=== PATIENT | female | born 1995 | race Caucasian/White ===

== ENCOUNTER 2022-06-15 22:11 | Emergency (ER) | payer BC, MEDICAID ==
[~2022-06-15] VITALS: Ht 172.7 cm; Wt 89.8 kg
[2022-06-15 22:15] VITALS: BP_SYST 119
--- NOTE | 2022-06-15 22:15 | NUR ---
Triaged and placed patient to ER bed 4 for evaluation. Report given to Abdullahi BELTRAN for continuity of care. Bed placed in lowest position with side rails up. Instructed to notify ED staff for any changes in condition or worsening of symptoms while waiting to be seen by a provider. Patient verbalized understanding.
--- NOTE | 2022-06-15 22:31 | NUR ---
Swabbed patient for Covid Rama and Influenza A&B antigen as ordered by Dr. South. Patient tolerated the procedure well. Specimen dropped off at the lab.
--- NOTE | 2022-06-15 22:34 | NUR ---
PT IS SORE TROAT, NAUSEATED, FEVER 101. AT HOME 21.00 TOOK VICODIN PER MOTHER RECOMMEDATION.
[2022-06-15] MEDS ORDERED: KETOROLAC TROMETHAMINE 15 MG VIAL IVP ONE (23:00)
[2022-06-15] MEDS ORDERED: ONDANSETRON HCL 4 MG/2 ML VIAL IVP ONE (23:00)
[2022-06-15] MEDS ORDERED: NACL 0.9% 1,000 ML IV ONE ×2 (23:00→23:45)
[2022-06-15 23:24] LABS: BASOPHILS % (AUTO) 0.3 % (0.0-2.0); HEMATOCRIT 38.2 % (36-48); HEMOGLOBIN 12.8 g/dL (12.0-16.0); LYMPHOCYTES # (AUTO) 0.8 K/uL (1.0-5.5); LYMPHOCYTES % (AUTO) 4.9 % (20.5-51.5); MEAN CORPUSCULAR HEMOGLOBIN 28 pg (27-31); MEAN CORPUSCULAR HGB CONC 33 % (32-36); MEAN CORPUSCULAR VOLUME 84 fL (79.0-98.0); MONOCYTES # (AUTO) 0.5 K/uL (0.0-1.0); MONOCYTES % (AUTO) 3.3 % (1.7-9.3); NEUTROPHILS % (AUTO) 91.5 % (40.0-70.0); PLATELET COUNT (AUTO) 261 K/uL (130-430); RED BLOOD CELL COUNT(AUTO) 4.54 MIL/uL (4.2-6.2); RED CELL DISTRIBUTION WIDTH 13.3 % (9.0-15.0); WHITE BLOOD COUNT (AUTO) 16.4 K/uL (4.8-10.8)
[2022-06-15 23:38] LABS: CREATININE 0.89 mg/dL (0.55-1.30)
[2022-06-15 23:43] LABS: ALBUMIN 3.7 g/dL (3.4-4.8); TOTAL BILIRUBIN 0.5 mg/dL (0.0-1.0)
[2022-06-15 23:43] LABS: BILIRUBIN,URINE NEGATIVE (NEGATIVE); BLOOD, URINE 3+ (NEGATIVE); COLOR,URINE YELLOW (YELLOW); GLUCOSE,URINE NEGATIVE (NEGATIVE); KETONES,URINE NEGATIVE (NEGATIVE); LEUKOCYTE ESTERASE ,URINE TRACE (NEGATIVE); NITRITE, URINE NEGATIVE (NEGATIVE); PH,URINE 6.5 (5.0-8.0); PROTEIN URINE NEGATIVE (NEGATIVE); UROBILINOGEN,URINE 0.2 (0.2-1.0)
[2022-06-15 23:54] LABS: CLARITY/URINE TURBID (CLEAR)
[2022-06-16 00:05] LABS: BACTERIA,URINE FEW /HPF (None Seen); MUCUS,URINE 1+ /LPF (None Seen)
[2022-06-16] MEDS ORDERED: cefTRIAXone 2 GM VIAL ONE (00:07)
[2022-06-16] MEDS ORDERED: MORPHINE 4 MG INJ. 4 MG/ML VIAL IVP ONE (01:30)
[2022-06-16] MEDS ORDERED: IBUP-1969 PO ×2 (02:41→04:25)
[2022-06-16] MEDS ORDERED: CEPH-548 PO ×2 (02:41→04:25)
--- NOTE | 2022-06-16 03:37 | NUR ---
Patient given written and verbal discharge instructions and verbalizes understanding. ER MD discussed with patient the results and treatment provided. Patient in stable condition. ID arm band removed. IV catheter removed intact and dressing applied, no active bleeding. Rx of cephalixn and ibuprofen given. Patient educated on pain management and to follow up with PMD. Pain Scale 0/10 Opportunity for questions provided and answered. Medication side effect fact sheet provided.
[2022-06-16 04:03] VITALS: BP_SYST 125
== END 2022-06-16 03:37 | disposition home or self-care (01) ==
LOC: SED 22:11
DX: N39.0 Urinary tract infection, site not specified (principal); J06.9 Acute upper respiratory infection, unspecified; N12 Tubulo-interstitial nephritis, not specified as acute or chronic; Z79.899 Other long term (current) drug therapy; Z20.822 Contact with and (suspected) exposure to COVID-19
CPT/HCPCS: 99284; 87426; 80053; 81000; 82550; 83690; 85025; 86403; 87086; 36415; 81025; 83605; 87804 ×2; 87040; 87081; 96365; 96375; J1885; J2405; J0696; J2270

== ENCOUNTER 2022-07-31 13:22 | Emergency (ER) | payer BC, MEDICAID ==
[~2022-07-31] VITALS: Ht 172.7 cm; Wt 86.2 kg
[2022-07-31 13:22] VITALS: BP_SYST 120
[~2022-07-31 13:22] MED LIST: CEPH-548 PO; IBUP-1969 PO
--- NOTE | 2022-07-31 13:25 | NUR ---
Patient triaged and placed in waiting room. VSS and patient appears in no acute distress at this time. Accompanied by SELF, awaiting available bed, and MD notified of need for MSE.
--- NOTE | 2022-07-31 14:12 | NUR ---
BROUGHT BACK TO BED #3 AMBULATORY, REPORT GIVEN TO SHEELA
[2022-07-31 14:30] LABS: BASOPHILS # (AUTO) 0.1 K/uL (0.0-0.2); BASOPHILS % (AUTO) 0.4 % (0.0-2.0); EOSINOPHILS # (AUTO) 0.1 K/uL (0.0-0.4); EOSINOPHILS % (AUTO) 0.3 % (0.0-4.0); HEMATOCRIT 40.1 % (36-48); HEMOGLOBIN 13.4 g/dL (12.0-16.0); LYMPHOCYTES # (AUTO) 2.8 K/uL (1.0-5.5); LYMPHOCYTES % (AUTO) 15.8 % (20.5-51.5); MEAN CORPUSCULAR HEMOGLOBIN 28 pg (27-31); MEAN CORPUSCULAR HGB CONC 33 % (32-36); MEAN CORPUSCULAR VOLUME 85 fL (79.0-98.0); MONOCYTES # (AUTO) 0.5 K/uL (0.0-1.0); MONOCYTES % (AUTO) 2.7 % (1.7-9.3); NEUTROPHILS # (AUTO) 14.3 K/uL (1.8-7.7); NEUTROPHILS % (AUTO) 80.8 % (40.0-70.0); PLATELET COUNT (AUTO) 259 K/uL (130-430); RED BLOOD CELL COUNT(AUTO) 4.73 MIL/uL (4.2-6.2); RED CELL DISTRIBUTION WIDTH 13.3 % (9.0-15.0); WHITE BLOOD COUNT (AUTO) 17.7 K/uL (4.8-10.8)
--- NOTE | 2022-07-31 14:30 | NUR ---
MD DR VILLAR AT BEDSIDE
--- NOTE | 2022-07-31 14:31 | NUR ---
PT BIB SELF AWAKE AND ALERT AOX4, NO SOB OR DISTRESS. PT C/O BILATERAL FLANK PAIN X10 DAYS. PAIN 5/10. PT HAS N/D, BUT DENIES VOMIT. PT STATES PAIN DURING URINATION BUT NO BLOOD. PT HAS HX OF LUPUS, HOOPA DISEASE.
[2022-07-31 14:53] LABS: BILIRUBIN,URINE NEGATIVE (NEGATIVE); BLOOD, URINE NEGATIVE (NEGATIVE); CLARITY/URINE CLEAR (CLEAR); COLOR,URINE YELLOW (YELLOW); GLUCOSE,URINE NEGATIVE (NEGATIVE); KETONES,URINE NEGATIVE (NEGATIVE); LEUKOCYTE ESTERASE ,URINE NEGATIVE (NEGATIVE); NITRITE, URINE NEGATIVE (NEGATIVE); PROTEIN URINE NEGATIVE (NEGATIVE); UROBILINOGEN,URINE 0.2 (0.2-1.0)
[2022-07-31 15:14] LABS: ALBUMIN 3.7 g/dL (3.4-4.8); CALCIUM 8.8 mg/dL (8.4-11.0); CREATININE 0.75 mg/dL (0.55-1.30); TOTAL BILIRUBIN 0.5 mg/dL (0.0-1.0)
[2022-07-31 15:45] LABS: CKMB RELATIVE INDEX 0.5 (0.0-2.9); CREATINE KINASE MB 1.3 ng/mL (0-3.6)
[2022-07-31] MEDS ORDERED: IBUP-1969 PO (16:26)
[2022-07-31 16:40] VITALS: BP_SYST 136
--- NOTE | 2022-07-31 16:42 | NUR ---
Patient given written and verbal discharge instructions and verbalizes understanding. ER MD DR VILLAR discussed with patient the results and treatment provided. Patient in stable condition. ID arm band removed. Rx of MOTRIN given. Patient educated on pain management and to follow up with PMD. Pain Scale 4/10. Opportunity for questions provided and answered. Medication side effect fact sheet provided.
== END 2022-07-31 16:42 | disposition home or self-care (01) ==
LOC: SED 13:22
DX: R10.9 Unspecified abdominal pain (principal); R35.0 Frequency of micturition; R50.9 Fever, unspecified; Z79.899 Other long term (current) drug therapy; Z20.822 Contact with and (suspected) exposure to COVID-19
CPT/HCPCS: 36415; 76770; 80053; 81003; 81025; 82550; 82553; 83690; 85025; 99284

== ENCOUNTER 2022-11-02 13:50 | Emergency (ER) | payer BC, MEDICAID ==
[~2022-11-02] VITALS: Ht 172.7 cm; Wt 88.5 kg
[2022-11-02 14:02] VITALS: BP_SYST 124; PULSE 113; RESP 18; TEMP 97.9; O2SAT 97
[2022-11-02 14:46] LABS: BILIRUBIN,URINE NEGATIVE (NEGATIVE); CLARITY/URINE CLEAR (CLEAR); COLOR,URINE YELLOW (YELLOW); GLUCOSE,URINE NEGATIVE (NEGATIVE); KETONES,URINE NEGATIVE (NEGATIVE); LEUKOCYTE ESTERASE ,URINE NEGATIVE (NEGATIVE); NITRITE, URINE NEGATIVE (NEGATIVE); PROTEIN URINE NEGATIVE (NEGATIVE); UROBILINOGEN,URINE 0.2 (0.2-1.0)
[2022-11-02 14:47] LABS: BACTERIA,URINE FEW /HPF (None Seen); BLOOD, URINE TRACE (NEGATIVE); RBC,URINE 0-3 /HPF (0-3); WBC,URINE 0-3 /HPF (0-3)
[2022-11-02 14:48] LABS: BASOPHILS % (AUTO) 0.4 % (0.0-2.0); EOSINOPHILS # (AUTO) 0.1 K/uL (0.0-0.4); EOSINOPHILS % (AUTO) 1.1 % (0.0-4.0); HEMATOCRIT 39.7 % (36-48); HEMOGLOBIN 12.9 g/dL (12.0-16.0); LYMPHOCYTES # (AUTO) 2.8 K/uL (1.0-5.5); MEAN CORPUSCULAR HEMOGLOBIN 27 pg (27-31); MEAN CORPUSCULAR HGB CONC 33 % (32-36); MEAN CORPUSCULAR VOLUME 84 fL (79.0-98.0); MONOCYTES # (AUTO) 0.4 K/uL (0.0-1.0); MONOCYTES % (AUTO) 5.7 % (1.7-9.3); NEUTROPHILS # (AUTO) 4.2 K/uL (1.8-7.7); NEUTROPHILS % (AUTO) 55.8 % (40.0-70.0); PLATELET COUNT (AUTO) 304 K/uL (130-430); RED BLOOD CELL COUNT(AUTO) 4.74 MIL/uL (4.2-6.2); RED CELL DISTRIBUTION WIDTH 13.7 % (9.0-15.0); WHITE BLOOD COUNT (AUTO) 7.5 K/uL (4.8-10.8)
[2022-11-02 14:48] LABS: MUCUS,URINE 1+ /LPF (None Seen)
[2022-11-02 16:43] VITALS: BP_SYST 135; PULSE 78; RESP 17; TEMP 97.3; O2SAT 97
== END 2022-11-02 16:45 | disposition home or self-care (01) ==
LOC: SED 13:50
DX: O20.9 Hemorrhage in early pregnancy, unspecified (principal); Z3A.01 Less than 8 weeks gestation of pregnancy; Z79.899 Other long term (current) drug therapy
CPT/HCPCS: 36415; 76801; 76817; 81000; 84702; 85025; 86901; 99284

== ENCOUNTER 2023-01-06 13:35 | Emergency (ER) | payer BC, MEDICAID ==
[~2023-01-06] VITALS: Ht 172.7 cm; Wt 88.5 kg
[2023-01-06 14:49] VITALS: BP_SYST 126; PULSE 81; RESP 16; TEMP 97.7; O2SAT 98
== END 2023-01-06 20:36 | disposition left against medical advice (07) ==
LOC: SED 13:35
DX: H57.89 Other specified disorders of eye and adnexa (principal); Z53.21 Procedure and treatment not carried out due to patient leaving prior to being seen by health care provider
CPT/HCPCS: 99281

== ENCOUNTER 2023-02-20 08:35 | Emergency (ER) | payer BC, MEDICAID ==
[~2023-02-20] VITALS: Ht 172.7 cm; Wt 88.5 kg
[2023-02-20 08:40] VITALS: BP_SYST 122; PULSE 120; RESP 20; TEMP 97.6; O2SAT 96
[2023-02-20 09:48] LABS: BASOPHILS % (AUTO) 0.4 % (0.0-2.0); EOSINOPHILS # (AUTO) 0.1 K/uL (0.0-0.4); EOSINOPHILS % (AUTO) 1.4 % (0.0-4.0); HEMATOCRIT 39.8 % (36-48); HEMOGLOBIN 13.2 g/dL (12.0-16.0); LYMPHOCYTES # (AUTO) 0.7 K/uL (1.0-5.5); LYMPHOCYTES % (AUTO) 13.2 % (20.5-51.5); MEAN CORPUSCULAR HEMOGLOBIN 28 pg (27-31); MEAN CORPUSCULAR HGB CONC 33 % (32-36); MEAN CORPUSCULAR VOLUME 85 fL (79.0-98.0); MONOCYTES # (AUTO) 0.3 K/uL (0.0-1.0); MONOCYTES % (AUTO) 6.5 % (1.7-9.3); NEUTROPHILS # (AUTO) 4.2 K/uL (1.8-7.7); NEUTROPHILS % (AUTO) 78.5 % (40.0-70.0); PLATELET COUNT (AUTO) 261 K/uL (130-430); RED BLOOD CELL COUNT(AUTO) 4.68 MIL/uL (4.2-6.2); RED CELL DISTRIBUTION WIDTH 13.7 % (9.0-15.0); WHITE BLOOD COUNT (AUTO) 5.3 K/uL (4.8-10.8)
[2023-02-20 10:02] LABS: ANION GAP 8 (5-15); CALCIUM 9.5 mg/dL (8.4-11.0); CARBON DIOXIDE 27 mmol/L (23-29); CHLORIDE 103 mmol/L (98-107); CREATININE 0.75 mg/dL (0.55-1.30); GFR AFRICAN AMERICAN 118 mL/min (>90); GLUCOSE 101 mg/dL (74-106); POTASSIUM 4.3 mmol/L (3.5-5.1); SODIUM SERUM 138 mmol/L (136-145); UREA NITROGEN, BLOOD 8 mg/dL (8-21)
[2023-02-20 10:07] LABS: GFR NON AFRICAN-AMERICAN 98 mL/min (>90)
[2023-02-20 10:09] LABS: ALANINE AMINOTRANSFERASE 25 U/L (12-78); ALBUMIN 3.7 g/dL (3.4-4.8); ASPARTATE AMINOTRANSFERASE 14 U/L (10-37); TOTAL BILIRUBIN 0.2 mg/dL (0.0-1.0)
[2023-02-20 10:22] LABS: INFLUENZA TYPE A Negative (NEGATIVE); INFLUENZA TYPE B NEGATIVE (NEGATIVE)
[2023-02-20] MEDS ORDERED: NIRM1TAB5 PO (11:12)
[2023-02-20] MEDS ORDERED: IBUP-1969 PO (11:12)
[2023-02-20] MEDS ORDERED: ALBMDI INH (11:12)
[2023-02-20] MEDS ORDERED: IBUPROFEN 800 MG TABLET PO ONE (11:45)
[2023-02-20 12:49] VITALS: BP_SYST 122; PULSE 120; RESP 20; TEMP 97.6; O2SAT 96
== END 2023-02-20 12:48 | disposition home or self-care (01) ==
LOC: SED 08:35
DX: U07.1 COVID-19 (principal); J40 Bronchitis, not specified as acute or chronic; R07.81 Pleurodynia; R50.9 Fever, unspecified; Z79.899 Other long term (current) drug therapy
CPT/HCPCS: 36415; 71045; 80053; 84484; 85025; 93005; 99285

== ENCOUNTER 2023-06-10 08:43 | Emergency (ER) | payer BC ==
[~2023-06-10] VITALS: Ht 172.7 cm; Wt 90.7 kg
[~2023-06-10 08:43] MED LIST changes: +ALBMDI INH; +NIRM1TAB5 PO
[2023-06-10 08:48] VITALS: BP_SYST 122; PULSE 121; RESP 15; TEMP 97.6; O2SAT 95
[2023-06-10 09:23] LABS: BASOPHILS % (AUTO) 0.1 % (0.0-2.0); EOSINOPHILS # (AUTO) 0.1 K/uL (0.0-0.4); EOSINOPHILS % (AUTO) 0.5 % (0.0-4.0); HEMATOCRIT 39.5 % (36-48); HEMOGLOBIN 13.3 g/dL (12.0-16.0); LYMPHOCYTES # (AUTO) 0.7 K/uL (1.0-5.5); LYMPHOCYTES % (AUTO) 6.2 % (20.5-51.5); MEAN CORPUSCULAR HEMOGLOBIN 28 pg (27-31); MEAN CORPUSCULAR HGB CONC 34 % (32-36); MEAN CORPUSCULAR VOLUME 84 fL (79.0-98.0); MONOCYTES # (AUTO) 0.4 K/uL (0.0-1.0); MONOCYTES % (AUTO) 3.2 % (1.7-9.3); NEUTROPHILS # (AUTO) 10.7 K/uL (1.8-7.7); PLATELET COUNT (AUTO) 310 K/uL (130-430); RED BLOOD CELL COUNT(AUTO) 4.68 MIL/uL (4.2-6.2); RED CELL DISTRIBUTION WIDTH 13.4 % (9.0-15.0); WHITE BLOOD COUNT (AUTO) 11.9 K/uL (4.8-10.8)
[2023-06-10 09:48] LABS: CREATININE 0.82 mg/dL (0.55-1.30)
[2023-06-10] MEDS: KETOROLAC TROMETHAMINE 30 MG VIAL IVP ONE (09:48)
[2023-06-10] MEDS: NACL 0.9% 1,000 ML IV ONE (09:48)
[2023-06-10] MEDS: ONDANSETRON HCL 4 MG/2 ML VIAL IVP ONE (09:48)
[2023-06-10 09:53] LABS: ALBUMIN 3.8 g/dL (3.4-4.8); BILIRUBIN,DIRECT 0.1 mg/dL (0.0-0.3); TOTAL BILIRUBIN 0.4 mg/dL (0.0-1.0); TOTAL PROTEIN, SERUM 8.3 g/dL (6.4-8.3)
[2023-06-10] MEDS: PROCHLORPERAZINE EDISYLATE 10 MG/2 ML VIAL IVP ONE (10:58)
[2023-06-10] MEDS: MORPHINE 2 MG/ML INJ. SYRINGE IVP ONE (10:58)
[2023-06-10] MEDS ORDERED: LOM2.5 PO (11:58)
[2023-06-10] MEDS ORDERED: PROC5TAB12 PO (11:58)
[2023-06-10] MEDS ORDERED: METR-154 PO (11:58)
[2023-06-10] MEDS ORDERED: SULF1TAB48 PO (11:58)
[2023-06-10 12:00] VITALS: BP_SYST 128; PULSE 91; RESP 16; TEMP 98; O2SAT 98
== END 2023-06-10 12:09 | disposition home or self-care (01) ==
LOC: SED 08:43
DX: K52.9 Noninfective gastroenteritis and colitis, unspecified (principal); R11.2 Nausea with vomiting, unspecified; Z88.1 Allergy status to other antibiotic agents; Z79.899 Other long term (current) drug therapy
CPT/HCPCS: 99285; 74176; 96374; 96375; 96361; 80076; 80048; 83690; 85025; 36415; J1885; J2405; J0780; J2270; J7030

== ENCOUNTER 2023-08-24 13:25 | Emergency (ER) | payer BC ==
[~2023-08-24] VITALS: Ht 172.7 cm; Wt 90.7 kg
[~2023-08-24 13:25] MED LIST changes: +LOM2.5 PO; +METR-154 PO; +PROC5TAB12 PO; +SULF1TAB48 PO
[2023-08-24 13:30] VITALS: BP_SYST 141; PULSE 112; RESP 18; TEMP 98.3; O2SAT 98
[2023-08-24 14:07] LABS: BASOPHILS % (AUTO) 0.4 % (0.0-2.0); EOSINOPHILS # (AUTO) 0.1 K/uL (0.0-0.4); EOSINOPHILS % (AUTO) 0.8 % (0.0-4.0); HEMATOCRIT 40.2 % (36-48); HEMOGLOBIN 13.7 g/dL (12.0-16.0); LYMPHOCYTES # (AUTO) 2.9 K/uL (1.0-5.5); LYMPHOCYTES % (AUTO) 38.4 % (20.5-51.5); MEAN CORPUSCULAR HEMOGLOBIN 29 pg (27-31); MEAN CORPUSCULAR HGB CONC 34 % (32-36); MEAN CORPUSCULAR VOLUME 85 fL (79.0-98.0); MONOCYTES # (AUTO) 0.4 K/uL (0.0-1.0); MONOCYTES % (AUTO) 5.9 % (1.7-9.3); NEUTROPHILS # (AUTO) 4.1 K/uL (1.8-7.7); NEUTROPHILS % (AUTO) 54.5 % (40.0-70.0); PLATELET COUNT (AUTO) 322 K/uL (130-430); RED BLOOD CELL COUNT(AUTO) 4.76 MIL/uL (4.2-6.2); RED CELL DISTRIBUTION WIDTH 13.8 % (9.0-15.0); WHITE BLOOD COUNT (AUTO) 7.5 K/uL (4.8-10.8)
[2023-08-24 14:25] LABS: ANION GAP 9 (5-15); CALCIUM 9.2 mg/dL (8.4-11.0); CARBON DIOXIDE 27 mmol/L (23-29); CHLORIDE 101 mmol/L (98-107); CREATININE 0.75 mg/dL (0.55-1.30); GFR AFRICAN AMERICAN 118 mL/min (>90); GLUCOSE 110 mg/dL (74-106); POTASSIUM 3.8 mmol/L (3.5-5.1); SODIUM SERUM 137 mmol/L (136-145); UREA NITROGEN, BLOOD 9 mg/dL (8-21)
[2023-08-24 14:26] LABS: GFR NON AFRICAN-AMERICAN 98 mL/min (>90)
[2023-08-24] MEDS ORDERED: ALPR0.25 PO (15:13)
[2023-08-24 15:28] VITALS: BP_SYST 127; PULSE 93; RESP 18; TEMP 98.6; O2SAT 96
== END 2023-08-24 15:17 | disposition home or self-care (01) ==
LOC: SED 13:25
DX: R07.9 Chest pain, unspecified (principal); R05.9 Cough, unspecified; Z88.1 Allergy status to other antibiotic agents; Z79.899 Other long term (current) drug therapy; Z79.2 Long term (current) use of antibiotics
CPT/HCPCS: 36415; 71045; 80048; 84484; 85025; 93005; 99285